=== PATIENT | male | born 1975 | race Caucasian/White ===

== ENCOUNTER 2023-05-09 11:49 | Emergency (ER) | payer OTHER ==
[2023-05-09] MEDS ORDERED: oxyCODONE 5 MG Tab PO ONE (12:30)
== END 2023-05-09 13:26 | disposition home or self-care (01) ==
LOC: JD.ED 11:49
DX: M54.41 Lumbago with sciatica, right side (principal); F17.210 Nicotine dependence, cigarettes, uncomplicated; Z88.0 Allergy status to penicillin; Z88.6 Allergy status to analgesic agent; Z88.8 Allergy status to other drugs, medicaments and biological substances
CPT/HCPCS: 72100; 99283; A9270

== ENCOUNTER 2023-10-27 14:06 | Emergency (ER) | payer OTHER ==
[2023-10-27] MEDS ORDERED: Sodium Chloride 0.9% 10 ML Syringe FLUSH PRN (14:28)
[2023-10-27] MEDS ORDERED: Albuterol/Ipratropium 3.0-0.5 MG/3 ML Neb Soln NEB ONE (14:28)
[2023-10-27 15:02] LABS: BASE EXCESS ARTERIAL -2.6 (-2-2.0); BICARBONATE,ARTERIAL 21.2 meq/L (22.0-26.0); O2 SATURATION ARTERIAL 91.4 % (96.0-97.0)
[2023-10-27 15:12] LABS: HEMATOCRIT 47.5 % (42.0-52.0); MEAN CORPUSCULAR HGB CONC 33.7 g/dl (32.0-36.0); MEAN CORPUSCULAR VOLUME 86.1 fl (83.0-99.0); MEAN PLATELET VOLUME 10.1 fl (9.4-12.4); PLATELET COUNT,PLT 243 K/mm3 (150-400); RED BLOOD CELL COUNT 5.52 M/mm3 (4.52-5.90); WHITE BLOOD CELL COUNT,WBC 11.77 K/mm3 (3.9-11.3)
[2023-10-27] MEDS ORDERED: Albuterol/Ipratropium 3.0-0.5 MG/3 ML Neb Soln NEB PRN (15:30)
[2023-10-27 15:56] LABS: ALBUMIN 3.7 g/dl (3.4-5.0); BILIRUBIN TOTAL 0.4 mg/dL (0.2-1.0); BUN/CREATININE RATIO 7.7 (14-18); C-REACTIVE PROTEIN 1.6 mg/dL (<1.0); CALCIUM 9.2 mg/dL (8.5-10.1); CREATININE 1.3 mg/dL (0.7-1.3); EST CRCL DRUG DOSING (CG) 75.44 mL/min; PROTEIN TOTAL,TP 7.6 g/dl (6.4-8.2)
[2023-10-27 16:19] LABS: BAND PERCENT MAN 0 % (0-10); BASOPHILS PERCENT MAN 0 (0.2-1.2); EOSINOPHILS PERCENT MAN 0 % (0.8-7.0); LYMPHOCYTES % ATYPICAL MANUAL 0 %; LYMPHOCYTES PERCENT MAN 7 % (20-40); MONOCYTES PERCENT MAN 4 % (2-10)
[2023-10-27 16:20] LABS: LACTIC ACID 3.2 mmol/L (0.4-2.0); PLATELET COUNT ESTIMATE ADEQUATE; TOXIC GRANULATION FEW
== END 2023-10-27 16:40 | disposition home or self-care (01) ==
LOC: JD.ED 14:06
DX: M30.1 Polyarteritis with lung involvement [Churg-Strauss] (principal); J32.9 Chronic sinusitis, unspecified; Z88.0 Allergy status to penicillin; Z91.018 Allergy to other foods; Z88.6 Allergy status to analgesic agent; Z88.8 Allergy status to other drugs, medicaments and biological substances; Z79.899 Other long term (current) drug therapy
CPT/HCPCS: 36415; 36600; 71045; 71045-26; 80053; 82803; 83605; 83880; 84484; 85007; 85027; 85379; 86140; 87040; 93005; 93010; 94640; 99283; 99285; J7620-GY